=== PATIENT | female | born 2000 | race Caucasian/White ===

== ENCOUNTER 2020-10-02 17:59 | Emergency (ER) | payer OTHER ==
[~2020-10-02] VITALS: Ht 160 cm; Wt 76.2 kg
[2020-10-02 18:11] VITALS: BP 128/74
--- NOTE | 2020-10-02 18:17 | NUR ---
DEGRASSE [employer]ER SHOE PARTS AT BEDSIDE FOR EVAL. PATIENT AA/OX4, REFUSING ANY TREATMENT. NO DISTRESS NOTED.
--- NOTE | 2020-10-02 18:20 | NUR ---
Patient aa/ox4, breathing even and unlabored, ambulatory with steady gait. Patient does not wish to proceed with medical care recommended by DEGR[employer] RESEARCH PROFESSOR OF BIOSTATISTICS. Patient given information related to possible complications, up to and including , which could occur as a result of leaving the hospital at this time. Patient verbalizes understanding of risks involved due to leaving against medical advice. Patient has signed AMA form.
[2020-10-02] MEDS ORDERED: LORAZEPAM INJ 2 MG/ML VIAL IVP ONE (18:30)
[2020-10-02] MEDS ORDERED: IV NS 0.9% 1,000 ML BAG IV ONE (18:30)
== END 2020-10-02 18:32 | disposition left against medical advice (07) ==
LOC: ER 18:06
DX: Z53.21 Procedure and treatment not carried out due to patient leaving prior to being seen by health care provider (principal)